=== PATIENT | female | born 1940 | race Caucasian/White ===

== ENCOUNTER → 2016-06-06 | Outpatient (CLI) | payer MEDICARE, BC ==
[~2016-06-06] MED LIST: ALLERGY RELIEF10 M1 PO; AMLODIPINE5 MG PO; AMOXICILLIN 50500 MG PO; CARBAMAZEPINE200 MG PO; CELEXA 20MG20 MG/TA1 PO; CIPRO 500MG TA500 MG PO; CITALOPRAM20 MG PO; CLONAZEPAM PO; COREG3.125 MG PO; COZAAR50 MG PO; FLUTICASON0.05 MG/Ac NS; FOLIC ACID0.8 MG PO; HCTZ 25MG25 MG PO; KLONOPIN 0.5MG0.5 MG PO; NITROSTAT0.4 MG SL; NORCO 325 MG-7.1 TAB PO; OXYBUTYNIN CHLO10 MG PO; PREVACID 15MG15 M1 PO; RITE AID ASPIRI81 M1 PO; TOPROL XL 25MG25 MG PO; TRAZADONE HYDR100 MG PO; TYLENOL 500MG500 MG PO; ULTRAM50 M1 PO; ULTRAM50 MG PO; VITAMIN B121000 MCG IJ; VITAMIN C500 MG PO; VITAMIN D3400 IU PO; WELCHOL 625MG625 MG PO; XARELTO10 MG PO; ZETIA 10MG TAB10 MG PO
== END ==
LOC: LAB 13:42
DX: E11.9 Type 2 diabetes mellitus without complications (principal); I10 Essential (primary) hypertension; E53.8 Deficiency of other specified B group vitamins; G47.33 Obstructive sleep apnea (adult) (pediatric)

== ENCOUNTER → 2017-01-06 | Outpatient (CLI) | payer MEDICARE, BC ==
[2016-02-19 15:15] VITALS: BP 156/78
== END ==
LOC: LAB 10:04
DX: I10 Essential (primary) hypertension (principal); E11.9 Type 2 diabetes mellitus without complications; M81.0 Age-related osteoporosis without current pathological fracture; E78.2 Mixed hyperlipidemia; Z12.11 Encounter for screening for malignant neoplasm of colon; K90.89 Other intestinal malabsorption; E53.8 Deficiency of other specified B group vitamins

== ENCOUNTER → 2017-01-15 | Outpatient (CLI) | payer MEDICARE, BC ==
[2016-02-19 15:15] VITALS: BP 156/78
== END ==
LOC: LAB 10:56
DX: E11.9 Type 2 diabetes mellitus without complications (principal); Z12.11 Encounter for screening for malignant neoplasm of colon

== ENCOUNTER → 2017-04-18 | Outpatient (CLI) | payer MEDICARE, BC ==
[2016-02-19 15:15] VITALS: BP 156/78
[2017-04-18 10:33] LABS: EOS # 0.2 (0.04-0.40); HEMATOCRIT 38.3 % (37.0-47.0); HEMOGLOBIN 12.8 g/dL (12.5-16.0); MEAN CELL VOLUME 93 fl (78-100); MEAN CORPUSCULAR HEMOGLOBIN 31 pg (27-31); MEAN CORPUSCULAR HGB CONC 33 g/dL (33-37); MEAN PLATELET VOLUME 9.8 fl (7.4-10.4); MONO # 0.4 (0.20-0.80); NEU # 3.1 (1.40-6.50); PLATELET COUNT 180 K/mm3 (130-400); RED BLOOD COUNT 4.11 M/mm3 (4.10-5.30); WHITE BLOOD COUNT 4.8 K/mm3 (4.8-10.8)
[2017-04-18 11:12] LABS: ALBUMIN 3.8 g/dL (3.5-5.0); BUN/CREATININE RATIO 35.9 (6.0-26.0); CALCIUM 8.9 mg/dL (8.4-10.2); POTASSIUM 4.2 mmol/L (3.6-5.0); TOTAL BILIRUBIN 0.5 mg/dL (0.2-1.3); TOTAL PROTEIN 6.7 g/dL (6.3-8.2)
[2017-04-18 11:45] LABS: ERYTHROCYTE SEDIMENTATION RATE 23 mm/hr (0-30)
== END ==
LOC: LAB 09:55
PROVIDERS: Internal Medicine
DX: E53.8 Deficiency of other specified B group vitamins (principal); G63 Polyneuropathy in diseases classified elsewhere; I10 Essential (primary) hypertension; E11.9 Type 2 diabetes mellitus without complications; M81.0 Age-related osteoporosis without current pathological fracture; Z88.2 Allergy status to sulfonamides; Z88.8 Allergy status to other drugs, medicaments and biological substances; Z91.040 Latex allergy status

== ENCOUNTER → 2017-08-12 | Outpatient (CLI) | payer MEDICARE, BC ==
[2016-02-19 15:15] VITALS: BP 156/78
[2017-08-12 11:24] LABS: EOS # 0.2 (0.04-0.40); HEMATOCRIT 39.5 % (37.0-47.0); HEMOGLOBIN 13.1 g/dL (12.5-16.0); LYMPH# 1.6 (1.50-4.00); MEAN CELL VOLUME 93 fl (78-100); MEAN CORPUSCULAR HEMOGLOBIN 31 pg (27-31); MEAN CORPUSCULAR HGB CONC 33 g/dL (33-37); MEAN PLATELET VOLUME 9.4 fl (7.4-10.4); MONO # 0.5 (0.20-0.80); NEU # 3.9 (1.40-6.50); PLATELET COUNT 247 K/mm3 (130-400); RED BLOOD COUNT 4.25 M/mm3 (4.10-5.30); RED CELL DISTRIBUTION WIDTH 13.2 % (11.5-14.5); WHITE BLOOD COUNT 6.3 K/mm3 (4.8-10.8)
[2017-08-12 11:51] LABS: ALBUMIN 4.1 g/dL (3.5-5.0); BUN/CREATININE RATIO 31.8 (6.0-26.0); CALCIUM 9.2 mg/dL (8.4-10.2); POTASSIUM 4.1 mmol/L (3.6-5.0); TOTAL BILIRUBIN 0.2 mg/dL (0.2-1.3); TOTAL PROTEIN 7.6 g/dL (6.3-8.2)
[2017-08-12 12:33] LABS: ERYTHROCYTE SEDIMENTATION RATE 27 mm/hr (0-30)
== END ==
LOC: LAB 11:06
PROVIDERS: Internal Medicine
DX: E11.9 Type 2 diabetes mellitus without complications (principal); M81.0 Age-related osteoporosis without current pathological fracture; I10 Essential (primary) hypertension; E78.5 Hyperlipidemia, unspecified; Z88.2 Allergy status to sulfonamides; Z88.8 Allergy status to other drugs, medicaments and biological substances; Z91.040 Latex allergy status

== ENCOUNTER → 2017-09-02 | Outpatient (CLI) | payer MEDICARE, BC ==
[2016-02-19 15:15] VITALS: BP 156/78
[~2017-09-02] MED LIST changes: +CHILDREN'S ASPI81 M1 PO; -CITALOPRAM20 MG PO; +CYANOCOBAL1000 MCG/1 IM; +DESYREL50 MG PO; -FOLIC ACID0.8 MG PO; +GLIMEPIRIDE4 MG PO; +KLONOPIN 0.5MG0.5 MG; +METOPROLOL SUCC25 M1 PO; +NITROSTAT0.4 M1 SL; -NITROSTAT0.4 MG SL; +OPTIMUM FOLIC800 MCG PO; -RITE AID ASPIRI81 M1 PO; -TRAZADONE HYDR100 MG PO; -VITAMIN B121000 MCG IJ
== END ==
LOC: RAD 07:35
DX: Z53.8 Procedure and treatment not carried out for other reasons (principal)

== ENCOUNTER → 2017-09-05 | Outpatient (CLI) | payer MEDICARE, BC ==
[2016-02-19 15:15] VITALS: BP 156/78
[~2017-09-05] MED LIST changes: -CHILDREN'S ASPI81 M1 PO; +CITALOPRAM20 MG PO; -CYANOCOBAL1000 MCG/1 IM; -DESYREL50 MG PO; +FOLIC ACID0.8 MG PO; -GLIMEPIRIDE4 MG PO; -KLONOPIN 0.5MG0.5 MG; -METOPROLOL SUCC25 M1 PO; -NITROSTAT0.4 M1 SL; +NITROSTAT0.4 MG SL; -OPTIMUM FOLIC800 MCG PO; +RITE AID ASPIRI81 M1 PO; +TRAZADONE HYDR100 MG PO; +VITAMIN B121000 MCG IJ
== END ==
LOC: RAD 07:58
DX: I65.23 Occlusion and stenosis of bilateral carotid arteries (principal); R59.0 Localized enlarged lymph nodes

== ENCOUNTER 2017-09-19 07:29 | Emergency (ER) | payer MEDICARE, BC ==
[~2017-09-19] VITALS: Wt 91.1 kg
[~2017-09-19 07:29] MED LIST changes: +CHILDREN'S ASPI81 M1 PO; -CITALOPRAM20 MG PO; +CYANOCOBAL1000 MCG/1 IM; +DESYREL50 MG PO; -FOLIC ACID0.8 MG PO; +NITROSTAT0.4 M1 SL; -NITROSTAT0.4 MG SL; +OPTIMUM FOLIC800 MCG PO; -RITE AID ASPIRI81 M1 PO; -TRAZADONE HYDR100 MG PO; -VITAMIN B121000 MCG IJ
[2017-09-19 08:12] LABS: EOS # 0.2 (0.04-0.40); EOS % 3.8 % (1.0-5.0); HEMATOCRIT 40.8 % (37.0-47.0); HEMOGLOBIN 13.4 g/dL (12.5-16.0); LYMPH# 1.4 (1.50-4.00); MEAN CELL VOLUME 94 fl (78-100); MEAN CORPUSCULAR HEMOGLOBIN 31 pg (27-31); MEAN CORPUSCULAR HGB CONC 33 g/dL (33-37); MEAN PLATELET VOLUME 9.6 fl (7.4-10.4); MONO # 0.5 (0.20-0.80); NEU # 3.4 (1.40-6.50); PLATELET COUNT 201 K/mm3 (130-400); RED BLOOD COUNT 4.33 M/mm3 (4.10-5.30); RED CELL DISTRIBUTION WIDTH 13.7 % (11.5-14.5); WHITE BLOOD COUNT 5.5 K/mm3 (4.8-10.8)
[2017-09-19 08:25] LABS: BUN/CREATININE RATIO 27.3 (6.0-26.0); POTASSIUM 3.9 mmol/L (3.6-5.0); TOTAL BILIRUBIN 0.4 mg/dL (0.2-1.3); TOTAL PROTEIN 7.6 g/dL (6.3-8.2)
[2017-09-19 08:31] LABS: URINE APPEARANCE CLEAR; URINE COLOR YELLOW; URINE PROTEIN(semi-quant) 1+ mg/dL (NEGATIVE)
[2017-09-19 08:32] LABS: URINE BILIRUBIN NEGATIVE (NEGATIVE); URINE BLOOD NEGATIVE (NEGATIVE); URINE GLUCOSE NEGATIVE (NEGATIVE); URINE KETONE NEGATIVE (NEGATIVE); URINE LEUKOCYTE ESTERASE 1+ (NEGATIVE); URINE NITRATE NEGATIVE (NEGATIVE); URINE UROBILINOGEN NORMAL (NORMAL); URINE WBC 16-30 /hpf (0-3)
[2017-09-19 08:33] LABS: CKMB ISOENZYME 2.5 ng/mL (0.6-3.5); TROPONIN-I < 0.03 ng/mL (0.00-0.06)
[2017-09-19] MEDS ORDERED: METOPROLOL SUCC25 M1 PO (08:42)
[2017-09-19] MEDS ORDERED: GLIMEPIRIDE4 MG PO (08:42)
[2017-09-19] MEDS ORDERED: KLONOPIN 0.5MG0.5 MG (08:43)
[2017-09-19] MEDS ORDERED: CELEXA 20MG20 MG/TA1 PO (08:43)
[2017-09-19 10:43] LABS: PARTIAL THROMBOPLASTIN TIME 23.7 SECONDS (21.0-32.0); PROTHROMBIN TIME 9.8 SECONDS (9.0-12.0)
[2017-09-19 11:21] VITALS: BP 180/80
== END 2017-09-19 11:20 | disposition short-term general hospital (02) ==
LOC: ED 07:29
PROVIDERS: Physician Assistant
DX: H53.9 Unspecified visual disturbance (principal); R42 Dizziness and giddiness; E11.9 Type 2 diabetes mellitus without complications; I10 Essential (primary) hypertension; I65.29 Occlusion and stenosis of unspecified carotid artery; R51 Headache; Z79.82 Long term (current) use of aspirin

== ENCOUNTER → 2017-09-24 | Outpatient (CLI) | payer MEDICARE, BC ==
[2017-09-19 11:21] VITALS: BP 180/80
[~2017-09-24] MED LIST changes: +GLIMEPIRIDE4 MG PO; +KLONOPIN 0.5MG0.5 MG; +METOPROLOL SUCC25 M1 PO
== END ==
LOC: RAD 08:20
DX: I67.82 Cerebral ischemia (principal); I67.9 Cerebrovascular disease, unspecified; G31.9 Degenerative disease of nervous system, unspecified
CPT/HCPCS: A9585

== ENCOUNTER 2017-10-09 14:00 | Outpatient (RCR) | payer MEDICARE, BC | END 2017-10-09 14:30 | disposition home or self-care (01) | LOC: OT 14:00 | DX: I69.398 Other sequelae of cerebral infarction (principal); H51.0 Palsy (spasm) of conjugate gaze; G63 Polyneuropathy in diseases classified elsewhere; Z86.79 Personal history of other diseases of the circulatory system; Z96.653 Presence of artificial knee joint, bilateral ==

== ENCOUNTER 2017-12-04 13:23 | Outpatient (RCR) | payer MEDICARE, BC | END 2017-12-04 14:00 | disposition home or self-care (01) | LOC: PT 13:23 | DX: I69.398 Other sequelae of cerebral infarction (principal); H51.0 Palsy (spasm) of conjugate gaze; G63 Polyneuropathy in diseases classified elsewhere; I65.29 Occlusion and stenosis of unspecified carotid artery | CPT/HCPCS: G8978-GP; G8979-GP ==

== ENCOUNTER 2018-02-25 15:00 | Outpatient (RCR) | payer MEDICARE, BC | END 2018-02-25 15:30 | disposition home or self-care (01) | LOC: PT 15:00 | DX: I69.398 Other sequelae of cerebral infarction (principal); H51.0 Palsy (spasm) of conjugate gaze; G63 Polyneuropathy in diseases classified elsewhere ==

== ENCOUNTER → 2018-05-01 | Outpatient (CLI) | payer MEDICARE, BC ==
[2018-05-01 15:03] LABS: ALBUMIN 4.2 g/dL (3.5-5.0); POTASSIUM 4.2 mmol/L (3.6-5.0); TOTAL BILIRUBIN 0.4 mg/dL (0.2-1.3); TOTAL PROTEIN 7.2 g/dL (6.3-8.2)
[2018-05-01 15:36] LABS: EOS # 0.1 (0.04-0.40); EOS % 2.1 % (1.0-5.0); HEMATOCRIT 32.9 % (37.0-47.0); HEMOGLOBIN 10.7 g/dL (12.5-16.0); LYMPH# 1.2 (1.50-4.00); MEAN CELL VOLUME 94 fl (78-100); MEAN CORPUSCULAR HEMOGLOBIN 31 pg (27-31); MEAN CORPUSCULAR HGB CONC 33 g/dL (33-37); MEAN PLATELET VOLUME 9.9 fl (7.4-10.4); MONO # 0.6 (0.20-0.80); NEU # 4.6 (1.40-6.50); PLATELET COUNT 268 K/mm3 (130-400); RED CELL DISTRIBUTION WIDTH 14.3 % (11.5-14.5); WHITE BLOOD COUNT 6.7 K/mm3 (4.8-10.8)
[2018-05-01 17:21] LABS: ERYTHROCYTE SEDIMENTATION RATE 48 mm/hr (0-30)
== END ==
LOC: LAB 14:36
PROVIDERS: Internal Medicine
DX: E11.9 Type 2 diabetes mellitus without complications (principal); I10 Essential (primary) hypertension; E78.5 Hyperlipidemia, unspecified; M81.0 Age-related osteoporosis without current pathological fracture

== ENCOUNTER → 2018-08-14 | Outpatient (CLI) | payer MEDICARE, BC ==
[2018-08-14 15:26] LABS: ALBUMIN 4.5 g/dL (3.5-5.0); CALCIUM 9.2 mg/dL (8.4-10.2); POTASSIUM 4.2 mmol/L (3.6-5.0); TOTAL BILIRUBIN 0.3 mg/dL (0.2-1.3); TOTAL PROTEIN 7.9 g/dL (6.3-8.2)
== END ==
LOC: LAB 14:35
PROVIDERS: Internal Medicine
DX: E11.9 Type 2 diabetes mellitus without complications (principal); I10 Essential (primary) hypertension

== ENCOUNTER → 2018-11-13 | Outpatient (CLI) | payer MEDICARE, BC ==
[2018-11-13 11:18] LABS: ALBUMIN 3.8 g/dL (3.4-4.8); POTASSIUM 4.4 mmol/L (3.5-5.1)
[2018-11-13 11:19] LABS: CALCIUM 9.3 mg/dL (8.3-10.5)
[2018-11-13 11:21] LABS: TOTAL PROTEIN 7.2 g/dL (6.2-8.1)
[2018-11-13 11:23] LABS: TOTAL BILIRUBIN 0.2 mg/dL (0.2-1.2)
== END ==
LOC: LAB 10:57
PROVIDERS: Internal Medicine
DX: E11.9 Type 2 diabetes mellitus without complications (principal); I10 Essential (primary) hypertension; E78.5 Hyperlipidemia, unspecified; M81.0 Age-related osteoporosis without current pathological fracture

== ENCOUNTER → 2018-12-23 | Day surgery (SDC) | payer MEDICARE, BC | LOC: MSO 07:52 | DX: H25.12 Age-related nuclear cataract, left eye (principal); E11.9 Type 2 diabetes mellitus without complications; Z79.84 Long term (current) use of oral hypoglycemic drugs; Z79.82 Long term (current) use of aspirin; Z87.891 Personal history of nicotine dependence; Z91.040 Latex allergy status; Z88.2 Allergy status to sulfonamides; Z91.09 Other allergy status, other than to drugs and biological substances; G47.33 Obstructive sleep apnea (adult) (pediatric); Z86.73 Personal history of transient ischemic attack (TIA), and cerebral infarction without residual deficits; Z88.6 Allergy status to analgesic agent; M19.90 Unspecified osteoarthritis, unspecified site; E78.00 Pure hypercholesterolemia, unspecified; Z90.710 Acquired absence of both cervix and uterus; Z96.653 Presence of artificial knee joint, bilateral; Z98.890 Other specified postprocedural states | CPT/HCPCS: 00142; J0171; J2250; V2632 ==

== ENCOUNTER → 2019-01-20 | Day surgery (SDC) | payer MEDICARE, BC | LOC: MSO 08:13 | DX: H25.11 Age-related nuclear cataract, right eye (principal); E11.9 Type 2 diabetes mellitus without complications; Z79.84 Long term (current) use of oral hypoglycemic drugs; I10 Essential (primary) hypertension; G47.30 Sleep apnea, unspecified; E78.00 Pure hypercholesterolemia, unspecified; Z86.73 Personal history of transient ischemic attack (TIA), and cerebral infarction without residual deficits; M17.0 Bilateral primary osteoarthritis of knee; Z96.653 Presence of artificial knee joint, bilateral; Z90.710 Acquired absence of both cervix and uterus; Z79.899 Other long term (current) drug therapy; Z79.82 Long term (current) use of aspirin; Z91.040 Latex allergy status; Z88.2 Allergy status to sulfonamides; Z91.048 Other nonmedicinal substance allergy status; E66.01 Morbid (severe) obesity due to excess calories; Z95.820 Peripheral vascular angioplasty status with implants and grafts | CPT/HCPCS: 00142; J0171; J2250; J3010; V2632 ==

== ENCOUNTER → 2019-02-04 | Outpatient (CLI) | payer MEDICARE, BC ==
[2019-02-04 15:08] LABS: BASO # 0.1 (0.02-0.10); EOS # 0.3 (0.04-0.40); EOS % 2.6 % (1.0-5.0); HEMATOCRIT 26.5 % (37.0-47.0); LYMPH# 1.4 (1.50-4.00); MEAN CELL VOLUME 73 fl (78-100); MEAN PLATELET VOLUME 8.7 fl (7.4-10.4); MONO # 0.7 (0.20-0.80); NEU # 7.4 (1.40-6.50); PLATELET COUNT 399 K/mm3 (130-400); RED BLOOD COUNT 3.61 M/mm3 (4.10-5.30); WHITE BLOOD COUNT 9.9 K/mm3 (4.8-10.8)
[2019-02-04 15:10] LABS: HEMOGLOBIN 7.7 g/dL (12.5-16.0); MEAN CORPUSCULAR HEMOGLOBIN 21 pg (27-31); MEAN CORPUSCULAR HGB CONC 29 g/dL (33-37); RED CELL DISTRIBUTION WIDTH 18.1 % (11.5-14.5)
[2019-02-04 15:11] LABS: ALBUMIN 3.9 g/dL (3.4-4.8)
[2019-02-04 15:12] LABS: POTASSIUM 4.4 mmol/L (3.5-5.1)
[2019-02-04 15:13] LABS: CALCIUM 9.4 mg/dL (8.3-10.5)
[2019-02-04 15:14] LABS: TOTAL PROTEIN 7.7 g/dL (6.2-8.1)
[2019-02-04 15:16] LABS: TOTAL BILIRUBIN 0.2 mg/dL (0.2-1.2)
== END ==
LOC: LAB 14:50
PROVIDERS: Internal Medicine
DX: M81.0 Age-related osteoporosis without current pathological fracture (principal); E11.9 Type 2 diabetes mellitus without complications; I10 Essential (primary) hypertension; E78.5 Hyperlipidemia, unspecified

== ENCOUNTER → 2019-02-18 | Day surgery (SDC) | payer MEDICARE, BC ==
[2019-02-15 09:15] VITALS: BP 158/75
[~2019-02-18] MED LIST changes: +MAGNESIUM CHLOR64 MG; +PANTOPRAZOLE SO40 MG PO; +PRALUENT P75 MG/1 ML SQ; +VITAMIN D1000 IU PO
== END | disposition home or self-care (01) ==
LOC: MSO 08:14
DX: D50.0 Iron deficiency anemia secondary to blood loss (chronic) (principal); K57.90 Diverticulosis of intestine, part unspecified, without perforation or abscess without bleeding; K21.9 Gastro-esophageal reflux disease without esophagitis; K44.9 Diaphragmatic hernia without obstruction or gangrene; Z79.899 Other long term (current) drug therapy; E11.9 Type 2 diabetes mellitus without complications; Z79.4 Long term (current) use of insulin; E78.00 Pure hypercholesterolemia, unspecified; Z98.51 Tubal ligation status; Z90.49 Acquired absence of other specified parts of digestive tract; G47.33 Obstructive sleep apnea (adult) (pediatric)
CPT/HCPCS: 00813; J2704; J7030

== ENCOUNTER 2019-03-01 09:21 | Outpatient (RCR) | payer MEDICARE, BC ==
[2019-02-10 09:54] VITALS: BP 178/79
[2019-02-10 10:59] VITALS: BP 174/71
[2019-02-12 09:32] VITALS: BP 154/64
[2019-02-12 10:47] VITALS: BP 170/68
[2019-02-15 09:15] VITALS: BP 158/75
[2019-02-19 09:30] VITALS: BP 162/74
[2019-02-22 09:16] VITALS: BP 181/85
[2019-02-22 10:35] VITALS: BP 176/78
--- NOTE | 2019-02-22 10:35 | NUR ---
LT FOREARM INT LEFT IN PLACE. PROTECT WITH STRETCH NETTING. AMBULATORY TO CLINIC FOR APPT WITH DR WARD.
[2019-02-24 09:32] VITALS: BP 162/70
[2019-02-24 10:30] VITALS: BP 175/89
[2019-02-26 09:35] VITALS: BP 164/77
[2019-02-26 10:37] VITALS: BP 153/75
[~2019-03-01] VITALS: Ht 154.9 cm; Wt 90.5 kg
[2019-03-01 09:44] VITALS: BP 186/80
[2019-03-01 10:45] VITALS: BP 186/77
== END 2019-03-01 11:20 | disposition still patient (30) ==
LOC: AMSURD 09:21
DX: N18.3 Chronic kidney disease, stage 3 (moderate) (principal); D63.1 Anemia in chronic kidney disease; D50.9 Iron deficiency anemia, unspecified
CPT/HCPCS: J2916

== ENCOUNTER → 2019-03-19 | Outpatient (CLI) | payer MEDICARE, BC ==
[2019-03-01 10:45] VITALS: BP 186/77
[2019-03-19 10:08] LABS: EOS # 0.2 (0.04-0.40); EOS % 3.6 % (1.0-5.0); HEMATOCRIT 38.9 % (37.0-47.0); HEMOGLOBIN 11.9 g/dL (12.5-16.0); LYMPH# 1.1 (1.50-4.00); MEAN CELL VOLUME 86 fl (78-100); MEAN CORPUSCULAR HEMOGLOBIN 26 pg (27-31); MEAN CORPUSCULAR HGB CONC 31 g/dL (33-37); MEAN PLATELET VOLUME 9.2 fl (7.4-10.4); MONO # 0.5 (0.20-0.80); NEU # 4.3 (1.40-6.50); PLATELET COUNT 200 K/mm3 (130-400); WHITE BLOOD COUNT 6.2 K/mm3 (4.8-10.8)
[2019-03-19 10:12] LABS: ALBUMIN 3.9 g/dL (3.4-4.8); POTASSIUM 4.2 mmol/L (3.5-5.1)
[2019-03-19 10:13] LABS: CALCIUM 9.4 mg/dL (8.3-10.5)
[2019-03-19 10:14] LABS: RED BLOOD COUNT 4.55 M/mm3 (4.10-5.30)
[2019-03-19 10:15] LABS: TOTAL PROTEIN 7.4 g/dL (6.2-8.1)
[2019-03-19 10:16] LABS: TOTAL BILIRUBIN 0.2 mg/dL (0.2-1.2)
== END ==
LOC: LAB 09:52
PROVIDERS: Internal Medicine
DX: I10 Essential (primary) hypertension (principal); E11.9 Type 2 diabetes mellitus without complications; E78.5 Hyperlipidemia, unspecified; M81.0 Age-related osteoporosis without current pathological fracture

== ENCOUNTER → 2019-05-24 | Outpatient (CLI) | payer MEDICARE, BC | LOC: RAD 13:20 | DX: R05 Cough (principal); R50.9 Fever, unspecified; R06.00 Dyspnea, unspecified ==

== ENCOUNTER → 2019-06-03 | Outpatient (CLI) | payer MEDICARE, BC ==
[2019-06-03 11:01] LABS: EOS # 0.1 (0.04-0.40); EOS % 2.1 % (1.0-5.0); HEMATOCRIT 41.6 % (37.0-47.0); HEMOGLOBIN 13.4 g/dL (12.5-16.0); MEAN CELL VOLUME 92 fl (78-100); MEAN CORPUSCULAR HEMOGLOBIN 30 pg (27-31); MEAN CORPUSCULAR HGB CONC 32 g/dL (33-37); MEAN PLATELET VOLUME 9.5 fl (7.4-10.4); MONO # 0.4 (0.20-0.80); NEU # 4.9 (1.40-6.50); PLATELET COUNT 246 K/mm3 (130-400); WHITE BLOOD COUNT 6.5 K/mm3 (4.8-10.8)
[2019-06-03 11:05] LABS: ALBUMIN 3.8 g/dL (3.4-4.8)
[2019-06-03 11:06] LABS: POTASSIUM 4.3 mmol/L (3.5-5.1)
[2019-06-03 11:07] LABS: CALCIUM 8.9 mg/dL (8.3-10.5)
[2019-06-03 11:08] LABS: TOTAL PROTEIN 7.5 g/dL (6.2-8.1)
[2019-06-03 11:10] LABS: TOTAL BILIRUBIN 0.2 mg/dL (0.2-1.2)
== END ==
LOC: LAB 10:34
PROVIDERS: Internal Medicine
DX: E11.9 Type 2 diabetes mellitus without complications (principal); I10 Essential (primary) hypertension; M81.0 Age-related osteoporosis without current pathological fracture; E78.5 Hyperlipidemia, unspecified

== ENCOUNTER 2019-07-03 18:08 | Emergency (ER) | payer MEDICARE, BC ==
[~2019-07-03] VITALS: Wt 90.5 kg
[2019-07-03 18:40] LABS: BASO # 0.1 (0.02-0.10); EOS # 0.3 (0.04-0.40); EOS % 5.5 % (1.0-5.0); HEMATOCRIT 41.4 % (37.0-47.0); HEMOGLOBIN 13.4 g/dL (12.5-16.0); LYMPH# 1.6 (1.50-4.00); MEAN CELL VOLUME 94 fl (78-100); MEAN CORPUSCULAR HEMOGLOBIN 31 pg (27-31); MEAN CORPUSCULAR HGB CONC 32 g/dL (33-37); MEAN PLATELET VOLUME 9.7 fl (7.4-10.4); MONO # 0.5 (0.20-0.80); NEU # 3.6 (1.40-6.50); PLATELET COUNT 210 K/mm3 (130-400); RED BLOOD COUNT 4.39 M/mm3 (4.10-5.30); RED CELL DISTRIBUTION WIDTH 14.2 % (11.5-14.5); WHITE BLOOD COUNT 6.2 K/mm3 (4.8-10.8)
[2019-07-03 18:51] LABS: CALCIUM 9.2 mg/dL (8.3-10.5)
[2019-07-03 18:55] LABS: PROTHROMBIN TIME 9.5 SECONDS (9.0-12.0)
[2019-07-03 22:18] VITALS: BP 197/89
== END 2019-07-03 22:00 | disposition home or self-care (01) ==
LOC: ED 18:08
PROVIDERS: Family Medicine
DX: R04.0 Epistaxis (principal); I10 Essential (primary) hypertension; E11.9 Type 2 diabetes mellitus without complications; G47.30 Sleep apnea, unspecified; Z79.82 Long term (current) use of aspirin; Z79.84 Long term (current) use of oral hypoglycemic drugs; Z86.73 Personal history of transient ischemic attack (TIA), and cerebral infarction without residual deficits

== ENCOUNTER 2019-07-04 12:54 | Emergency (ER) | payer MEDICARE, BC ==
[~2019-07-04] VITALS: Wt 88.4 kg
[2019-07-04 13:48] LABS: HEMATOCRIT 39.1 % (37.0-47.0); HEMOGLOBIN 12.7 g/dL (12.5-16.0); MEAN CELL VOLUME 93 fl (78-100); MEAN CORPUSCULAR HEMOGLOBIN 30 pg (27-31); MEAN CORPUSCULAR HGB CONC 33 g/dL (33-37); MEAN PLATELET VOLUME 9.9 fl (7.4-10.4); PLATELET COUNT 201 K/mm3 (130-400); RED CELL DISTRIBUTION WIDTH 13.9 % (11.5-14.5); WHITE BLOOD COUNT 8.5 K/mm3 (4.8-10.8)
[2019-07-04 13:59] LABS: CALCIUM 9.1 mg/dL (8.3-10.5)
[2019-07-04 14:02] LABS: LYMPHOCYTE 6 % (20-51); MONOCYTE 5 % (3-10); NEUTROPHILS 89 % (42-75)
[2019-07-04 14:50] VITALS: BP 157/80
== END 2019-07-04 14:45 | disposition home or self-care (01) ==
LOC: ED 12:54
PROVIDERS: Family Medicine
DX: R04.0 Epistaxis (principal); R53.81 Other malaise; E11.9 Type 2 diabetes mellitus without complications; I10 Essential (primary) hypertension; G47.30 Sleep apnea, unspecified; G40.909 Epilepsy, unspecified, not intractable, without status epilepticus; Z79.82 Long term (current) use of aspirin; Z79.84 Long term (current) use of oral hypoglycemic drugs; Z86.73 Personal history of transient ischemic attack (TIA), and cerebral infarction without residual deficits; Z87.891 Personal history of nicotine dependence

== ENCOUNTER 2019-09-07 16:31 | Emergency (ER) | payer MEDICARE, BC ==
[~2019-09-07] VITALS: Ht 154.9 cm; Wt 87.2 kg
[~2019-09-07 16:31] MED LIST changes: +ASPIRIN E.C. 8181 MG PO; -CARBAMAZEPINE200 MG PO; -CHILDREN'S ASPI81 M1 PO; -KLONOPIN 0.5MG0.5 MG; -MAGNESIUM CHLOR64 MG; +MAGNESIUM100 MG PO; -OPTIMUM FOLIC800 MCG PO; +PHARMASSURE FO0.4 MG PO; +TEGRETOL200 M1 PO; -VITAMIN D1000 IU PO; +VITAMIN D3125 MC4 PO
[2019-09-07 17:26] LABS: EOS # 0.2 (0.04-0.40); EOS % 2.9 % (1.0-5.0); HEMATOCRIT 42.3 % (37.0-47.0); HEMOGLOBIN 14.1 g/dL (12.5-16.0); LYMPH# 1.3 (1.50-4.00); MEAN CELL VOLUME 94 fl (78-100); MEAN CORPUSCULAR HEMOGLOBIN 31 pg (27-31); MEAN CORPUSCULAR HGB CONC 33 g/dL (33-37); MONO # 0.5 (0.20-0.80); NEU # 4.8 (1.40-6.50); PLATELET COUNT 206 K/mm3 (130-400); RED BLOOD COUNT 4.51 M/mm3 (4.10-5.30); WHITE BLOOD COUNT 6.9 K/mm3 (4.8-10.8)
[2019-09-07 17:29] LABS: ALBUMIN 4.3 g/dL (3.4-4.8)
[2019-09-07 17:30] LABS: CALCIUM 9.7 mg/dL (8.3-10.5)
[2019-09-07 17:33] LABS: TOTAL BILIRUBIN 0.2 mg/dL (0.2-1.2)
[2019-09-07 17:41] LABS: URINE APPEARANCE CLOUDY; URINE BILIRUBIN NEGATIVE (NEGATIVE); URINE BLOOD NEGATIVE (NEGATIVE); URINE COLOR LT YELLOW; URINE GLUCOSE NEGATIVE (NEGATIVE); URINE KETONE NEGATIVE (NEGATIVE); URINE LEUKOCYTE ESTERASE TRACE (NEGATIVE); URINE NITRATE NEGATIVE (NEGATIVE); URINE PROTEIN(semi-quant) TRACE mg/dL (NEGATIVE); URINE UROBILINOGEN NORMAL (NORMAL)
[2019-09-07 21:15] VITALS: BP 178/90
[2019-09-07] MEDS ORDERED: TEGRETOL200 M1 PO (21:19)
== END 2019-09-07 21:15 | disposition other institution (70) ==
LOC: ED 16:31
PROVIDERS: Nurse Practitioner Family
DX: I16.1 Hypertensive emergency (principal); I10 Essential (primary) hypertension; E11.9 Type 2 diabetes mellitus without complications; F41.9 Anxiety disorder, unspecified; Z90.710 Acquired absence of both cervix and uterus; Z86.73 Personal history of transient ischemic attack (TIA), and cerebral infarction without residual deficits; Z91.81 History of falling; Z79.82 Long term (current) use of aspirin; Z79.84 Long term (current) use of oral hypoglycemic drugs

== ENCOUNTER 2019-09-07 20:28 | Inpatient (IN) | payer MEDICARE, BC ==
[~2019-09-07] VITALS: Ht 154.9 cm; Wt 88.1 kg
[2019-09-07 21:00] VITALS: BP 178/90
[2019-09-07] MEDS ORDERED: TEGRETOL200 M1 PO (21:19)
[2019-09-07 21:45] VITALS: BP 178/90
[2019-09-07 22:18] VITALS: BP 180/82
[2019-09-07 23:09] VITALS: BP 209/75
[2019-09-08] VITALS (12 sets, daily range): BP systolic 83–169; BP diastolic 51–80
[2019-09-08 06:12] LABS: POTASSIUM 3.9 mmol/L (3.5-5.1)
[2019-09-08 06:14] LABS: CALCIUM 8.9 mg/dL (8.3-10.5)
[2019-09-09 02:34] VITALS: BP 111/64
[2019-09-09 06:05] VITALS: BP 111/78
[2019-09-09 06:22] LABS: EOS # 0.2 (0.04-0.40); EOS % 3.9 % (1.0-5.0); HEMATOCRIT 37.7 % (37.0-47.0); LYMPH# 1.7 (1.50-4.00); MEAN CELL VOLUME 95 fl (78-100); MEAN CORPUSCULAR HEMOGLOBIN 30 pg (27-31); MEAN CORPUSCULAR HGB CONC 32 g/dL (33-37); MEAN PLATELET VOLUME 9.9 fl (7.4-10.4); MONO # 0.6 (0.20-0.80); PLATELET COUNT 185 K/mm3 (130-400); RED BLOOD COUNT 3.98 M/mm3 (4.10-5.30); RED CELL DISTRIBUTION WIDTH 13.3 % (11.5-14.5); WHITE BLOOD COUNT 5.6 K/mm3 (4.8-10.8)
[2019-09-09 06:38] LABS: POTASSIUM 3.7 mmol/L (3.5-5.1)
[2019-09-09 06:39] LABS: CALCIUM 8.7 mg/dL (8.3-10.5)
[2019-09-09 10:20] VITALS: BP 174/90
[2019-09-09 12:32] VITALS: BP 170/77
[2019-09-09] MEDS ORDERED: LISINOPRIL10 MG PO (12:49)
== END 2019-09-09 13:34 | disposition home or self-care (01) | DRG 305 ==
LOC: MED/SURG 20:28
PROVIDERS: Physician Assistant; ADMIT Nurse Practitioner Family
DX: I16.1 Hypertensive emergency (principal); I10 Essential (primary) hypertension; E11.9 Type 2 diabetes mellitus without complications; E78.5 Hyperlipidemia, unspecified; E53.8 Deficiency of other specified B group vitamins; G47.33 Obstructive sleep apnea (adult) (pediatric); F41.9 Anxiety disorder, unspecified; R51 Headache; N28.9 Disorder of kidney and ureter, unspecified; M19.90 Unspecified osteoarthritis, unspecified site; Y92.009 Unspecified place in unspecified non-institutional (private) residence as the place of occurrence of the external cause; W18.30XA Fall on same level, unspecified, initial encounter; Z79.82 Long term (current) use of aspirin; Z87.891 Personal history of nicotine dependence; Z86.73 Personal history of transient ischemic attack (TIA), and cerebral infarction without residual deficits; Z90.710 Acquired absence of both cervix and uterus; Z88.2 Allergy status to sulfonamides; Z88.8 Allergy status to other drugs, medicaments and biological substances
CPT/HCPCS: J1650; J7040

== ENCOUNTER 2019-09-11 19:35 | Emergency (ER) | payer MEDICARE, BC ==
[~2019-09-11] VITALS: Ht 154.9 cm; Wt 83.2 kg
[~2019-09-11 19:35] MED LIST changes: +LISINOPRIL10 MG PO
[2019-09-11 21:54] VITALS: BP 195/98
[2019-09-12] MEDS ORDERED: METOPROLOL SUCC25 M1 PO (20:33)
[2019-09-12] MEDS ORDERED: LISINOPRIL20 MG PO (20:37)
[2019-09-12] MEDS ORDERED: PAIN RELIEVER500 M2 PO (20:38)
[2019-09-12] MEDS ORDERED: FLONASE ALLERG9.9 ML NS (20:38)
[2019-09-12] MEDS ORDERED: NITROSTAT0.4 M1 SL (20:39)
[2019-09-12] MEDS ORDERED: HYDROCHLOROTH12.5 M1 PO (20:41)
== END 2019-09-11 21:54 | disposition home or self-care (01) ==
LOC: ED 19:35
DX: I10 Essential (primary) hypertension (principal); G40.909 Epilepsy, unspecified, not intractable, without status epilepticus; E11.9 Type 2 diabetes mellitus without complications; Z86.73 Personal history of transient ischemic attack (TIA), and cerebral infarction without residual deficits; Z90.710 Acquired absence of both cervix and uterus; Z79.82 Long term (current) use of aspirin; Z79.84 Long term (current) use of oral hypoglycemic drugs

== ENCOUNTER 2019-09-12 18:38 | Emergency (ER) | payer MEDICARE, BC ==
[2019-09-12 20:01] LABS: POTASSIUM 3.8 mmol/L (3.5-5.1); SODIUM 135 mmol/L (136-145)
[2019-09-12 20:02] LABS: CALCIUM 9.2 mg/dL (8.3-10.5)
[2019-09-12 20:03] LABS: GLUCOSE 164 mg/dL (65-105)
[2019-09-12 20:04] LABS: CARBON DIOXIDE 26 mmol/L (23-31)
[2019-09-12 20:19] LABS: TROPONIN-I < 0.03 ng/mL (<0.030)
[2019-09-12] MEDS ORDERED: METOPROLOL SUCC25 M1 PO (20:33)
[2019-09-12] MEDS ORDERED: LISINOPRIL20 MG PO (20:37)
[2019-09-12] MEDS ORDERED: FLONASE ALLERG9.9 ML NS (20:38)
[2019-09-12] MEDS ORDERED: PAIN RELIEVER500 M2 PO (20:38)
[2019-09-12] MEDS ORDERED: NITROSTAT0.4 M1 SL (20:39)
[2019-09-12] MEDS ORDERED: HYDROCHLOROTH12.5 M1 PO (20:41)
[2019-09-12 20:49] VITALS: BP 188/86
== END 2019-09-12 20:59 | disposition home or self-care (01) ==
LOC: ED 18:38
PROVIDERS: Family Medicine
DX: I10 Essential (primary) hypertension (principal); E11.9 Type 2 diabetes mellitus without complications; Z86.69 Personal history of other diseases of the nervous system and sense organs; Z86.73 Personal history of transient ischemic attack (TIA), and cerebral infarction without residual deficits; Z90.89 Acquired absence of other organs; Z90.710 Acquired absence of both cervix and uterus; Z79.51 Long term (current) use of inhaled steroids; Z79.84 Long term (current) use of oral hypoglycemic drugs

== ENCOUNTER → 2019-10-08 | Outpatient (CLI) | payer MEDICARE, BC ==
[2019-09-12 20:49] VITALS: BP 188/86
[~2019-10-08] MED LIST changes: +FLONASE ALLERG9.9 ML NS; +HYDROCHLOROTH12.5 M1 PO; +LISINOPRIL20 MG PO; +PAIN RELIEVER500 M2 PO
[2019-10-08 16:48] LABS: EOS # 0.2 (0.04-0.40); EOS % 2.9 % (1.0-5.0); HEMATOCRIT 38.7 % (37.0-47.0); HEMOGLOBIN 12.9 g/dL (12.5-16.0); LYMPH# 1.1 (1.50-4.00); MEAN CELL VOLUME 92 fl (78-100); MEAN CORPUSCULAR HEMOGLOBIN 31 pg (27-31); MEAN CORPUSCULAR HGB CONC 33 g/dL (33-37); MEAN PLATELET VOLUME 9.4 fl (7.4-10.4); MONO # 0.5 (0.20-0.80); NEU # 3.7 (1.40-6.50); PLATELET COUNT 199 K/mm3 (130-400); RED BLOOD COUNT 4.23 M/mm3 (4.10-5.30); RED CELL DISTRIBUTION WIDTH 12.4 % (11.5-14.5); WHITE BLOOD COUNT 5.5 K/mm3 (4.8-10.8)
[2019-10-08 16:52] LABS: ALBUMIN 3.9 g/dL (3.4-4.8); POTASSIUM 4.4 mmol/L (3.5-5.1)
[2019-10-08 16:53] LABS: CALCIUM 9.2 mg/dL (8.3-10.5)
[2019-10-08 16:55] LABS: TOTAL PROTEIN 7.2 g/dL (6.2-8.1)
[2019-10-08 16:56] LABS: TOTAL BILIRUBIN 0.2 mg/dL (0.2-1.2)
== END ==
LOC: LAB 16:19
PROVIDERS: Internal Medicine
DX: E11.9 Type 2 diabetes mellitus without complications (principal); M81.0 Age-related osteoporosis without current pathological fracture; E78.2 Mixed hyperlipidemia; I10 Essential (primary) hypertension

== ENCOUNTER → 2019-12-24 | Outpatient (CLI) | payer MEDICARE, BC ==
[2019-12-24 10:22] LABS: ALBUMIN 3.9 g/dL (3.4-4.8); POTASSIUM 4.3 mmol/L (3.5-5.1)
[2019-12-24 10:23] LABS: CALCIUM 9.2 mg/dL (8.3-10.5)
[2019-12-24 10:25] LABS: TOTAL PROTEIN 7.1 g/dL (6.2-8.1)
[2019-12-24 10:26] LABS: TOTAL BILIRUBIN 0.3 mg/dL (0.2-1.2)
[2019-12-24 10:47] LABS: HEMATOCRIT 36.4 % (37.0-47.0); HEMOGLOBIN 12.4 g/dL (12.5-16.0); MEAN CELL VOLUME 89 fl (78-100); MEAN CORPUSCULAR HEMOGLOBIN 30 pg (27-31); MEAN CORPUSCULAR HGB CONC 34 g/dL (33-37); MEAN PLATELET VOLUME 9.5 fl (7.4-10.4); PLATELET COUNT 227 K/mm3 (130-400); RED BLOOD COUNT 4.09 M/mm3 (4.10-5.30); RED CELL DISTRIBUTION WIDTH 13.2 % (11.5-14.5); WHITE BLOOD COUNT 6.8 K/mm3 (4.8-10.8)
[2019-12-24 11:09] LABS: LYMPHOCYTE 13 % (20-51); MONOCYTE 9 % (3-10); NEUTROPHILS 78 % (42-75)
== END ==
LOC: LAB 09:55
PROVIDERS: Internal Medicine
DX: E11.9 Type 2 diabetes mellitus without complications (principal); M81.0 Age-related osteoporosis without current pathological fracture; I10 Essential (primary) hypertension; E78.2 Mixed hyperlipidemia; E53.8 Deficiency of other specified B group vitamins

== ENCOUNTER 2020-01-30 13:56 | Emergency (ER) | payer MEDICARE, BC ==
[~2020-01-30] VITALS: Ht 154.9 cm; Wt 88.1 kg
[2020-01-30] MEDS ORDERED: HCTZ 25MG25 MG PO (14:20)
[2020-01-30 16:10] VITALS: BP 162/76
== END 2020-01-30 16:11 | disposition home or self-care (01) ==
LOC: ED 13:56
DX: S00.03XA Contusion of scalp, initial encounter (principal); S60.211A Contusion of right wrist, initial encounter; S80.01XA Contusion of right knee, initial encounter; I10 Essential (primary) hypertension; E11.9 Type 2 diabetes mellitus without complications; Z86.73 Personal history of transient ischemic attack (TIA), and cerebral infarction without residual deficits; Z79.82 Long term (current) use of aspirin; Z79.51 Long term (current) use of inhaled steroids; Z79.84 Long term (current) use of oral hypoglycemic drugs; Z96.653 Presence of artificial knee joint, bilateral; W01.0XXA Fall on same level from slipping, tripping and stumbling without subsequent striking against object, initial encounter; Y92.511 Restaurant or cafe as the place of occurrence of the external cause

== ENCOUNTER → 2020-02-04 | Outpatient (CLI) | payer MEDICARE, BC ==
[2020-01-30 16:10] VITALS: BP 162/76
== END ==
LOC: RAD 14:55
DX: S09.90XA Unspecified injury of head, initial encounter (principal)

== ENCOUNTER → 2020-11-01 | Outpatient (CLI) | payer MEDICARE, BC | LOC: RAD 09:53 | DX: Z48.89 Encounter for other specified surgical aftercare (principal); M25.562 Pain in left knee; Z96.653 Presence of artificial knee joint, bilateral ==

== ENCOUNTER → 2021-01-08 | Outpatient (CLI) | payer MEDICARE, BC | LOC: RAD 09:52 | DX: R01.1 Cardiac murmur, unspecified (principal) ==

== ENCOUNTER → 2021-06-20 | Day surgery (SDC) | payer MEDICARE, BC | LOC: MSO 06:37 | DX: H26.492 Other secondary cataract, left eye (principal) ==

== ENCOUNTER → 2021-07-18 | Day surgery (SDC) | payer MEDICARE, BC | END | disposition home or self-care (01) | LOC: MSO 09:44 | DX: H26.491 Other secondary cataract, right eye (principal) ==

== ENCOUNTER 2023-09-11 10:28 | Emergency (ER) | payer MEDICARE, BC ==
[~2023-09-11 10:28] MED LIST changes: +Oxymetazoline 0.05% Nasal Spray 30 ML BOTTLE NS ONE
== END 2023-09-11 13:10 | disposition home or self-care (01) ==
LOC: ED 10:28
DX: R04.0 Epistaxis (principal)

== ENCOUNTER 2024-06-19 12:49 | Emergency (ER) | payer MEDICARE, BC ==
[~2024-06-19] VITALS: Ht 154.9 cm; Wt 82.3 kg
[~2024-06-19 12:49] MED LIST changes: -Oxymetazoline 0.05% Nasal Spray 30 ML BOTTLE NS ONE
[2024-06-19 14:12] VITALS: BP 174/79
== END 2024-06-19 14:12 | disposition home or self-care (01) ==
LOC: ED 12:49
DX: S40.011A Contusion of right shoulder, initial encounter (principal); S00.03XA Contusion of scalp, initial encounter; Z86.73 Personal history of transient ischemic attack (TIA), and cerebral infarction without residual deficits; Z91.040 Latex allergy status; W01.198A Fall on same level from slipping, tripping and stumbling with subsequent striking against other object, initial encounter; Y92.009 Unspecified place in unspecified non-institutional (private) residence as the place of occurrence of the external cause